=== PATIENT | female | born 1960 | race American Indian/Alaskan Native ===

== ENCOUNTER 2016-12-05 02:48 | Emergency (ER) | payer SELFPAY ==
[2016-12-05 03:02] VITALS: BP 155/115
--- NOTE | 2016-12-05 06:54 | Emergency Department Report ---
ED Rash HPI - HPI Chief Complaint: Skin Rash Stated Complaint: PAINFUL RASH ON CHEST Time Seen by Provider: 12/05/16 06:06 Location: Other (beneath left breast) Rash Symptoms: Yes Itching, No Facial Swelling, No Tongue/Oral Swelling, No Breathing Difficulties, No Choking Sensation, No Wheezing/Dyspnea, No Peeling, No Blistering, No Fever, No Lightheaded, No Malaise, No Myalgias Severity: mild Other History: 56-year-old female past medical history Lupus presents with complaint of itchy slightly bumpy red rash with moist skin beneath left breast. States she has had this for several days and that it is itchy and bothersome. Using any creams for this denies any fevers or chills denies any history of shingles ED Review of Systems ROS: Stated complaint: PAINFUL RASH ON CHEST Other details as noted in HPI Constitutional: denies: chills, fever Eyes: denies: eye pain, eye discharge, vision change ENT: denies: ear pain, throat pain Respiratory: denies: cough, shortness of breath, wheezing Cardiovascular: denies: chest pain, palpitations Endocrine: no symptoms reported Gastrointestinal: denies: abdominal pain, nausea, diarrhea Genitourinary: denies: urgency, dysuria, discharge Musculoskeletal: denies: back pain, joint swelling, arthralgia Skin: as per HPI. denies: rash, lesions Neurological: denies: headache, weakness, paresthesias Psychiatric: denies: anxiety, depression Hematological/Lymphatic: denies: easy bleeding, easy bruising ED Past Medical Hx - Past Medical History Previous Medical History?: Yes Hx Hypertension: Yes Additional medical history: Lupus. Colitis - Surgical History Past Surgical History?: No - Social History Smoking Status: Never Smoker Substance Use Type: None - Medications Home Medications: Home Medications Medication Instructions Recorded Confirmed Last Taken Type Hydrocortisone 1% [Hydrocortisone 1 applicatio TP TID PRN #1 tube 12/05/16 Unknown Rx 1% CREAM] Hydroxyzine HCl 25 mg PO BID PRN #20 tablet 12/05/16 Unknown Rx Nystatin [Nystop Powder] 1 applicatio TP BID #1 bottle 12/05/16 Unknown Rx Terbinafine HCl [Lamisil] 1 spray TP BID #1 spray 12/05/16 Unknown Rx Rash Exam - Exam General: Vital signs noted. No distress. Alert and acting appropriately. HEENT: No Periorbital Edema, No Conjuctival Injection, No Chemosis, No Perioral Edema, No Tongue Edema, No Uvular Edema, No Compromised Airway, No Drooling Lungs: Yes Good Air Exchange (Normal Breath Sounds), No Wheezes, No Ronchi, No Stridor, No Cough, No Labored Respirations, No Retractions, No Use of Accessory Muscles, No Other Abnormal Lung Sounds Heart: Yes Regular, No Murmur Skin: Yes Urticarial Rash, Yes Maculopapular Rash (red slightly raised plaques with serous leakage below left breast, consistent with intertrigo), Yes Weeping , Yes Erythema, No Morbilliform rash, No Bulla(e), No Excoriations, No Tenderness, No Edema, No Encrustations, No Other Other: Positive: Abdomen Normal, Neurologic Normal, Musculoskeletal Normal ED Course Vital Signs 12/05/16 02:50 Temperature 98.3 F Pulse Rate 88 Respiratory 20 Rate Blood Pressure 155/115 [Right] O2 Sat by Pulse 100 Oximetry ED Medical Decision Making - Medical Decision Making A/P: Candidal intertrigo beneath her left breast skin fold 1-topical antifungals antifungals 2-follow-up with primary care and dermatology Critical care attestation.: If time is entered above; I have spent that time in minutes in the direct care of this critically ill patient, excluding procedure time. ED Disposition Clinical Impression: Candidal intertrigo Disposition: DC-01 TO HOME OR SELFCARE Is pt being admited?: No Does the pt Need Aspirin: No Condition: Stable Instructions: Tinea Corporis (ED) Prescriptions: Hydrocortisone 1% [Hydrocortisone 1% CREAM] 1 applicatio TP TID PRN #1 tube PRN Reason: Itching Hydroxyzine HCl 25 mg PO BID PRN #20 tablet PRN Reason: Itching Nystatin [Nystop Powder] 1 applicatio TP BID #1 bottle Terbinafine HCl [Lamisil] 1 spray TP BID #1 spray Referrals: CURT HINKLE MD [Staff Physician] - 3-5 Days [facility] [Provider Group] - 3-5 Days Forms: Work/School Release Form(ED) Time of Disposition: 06:54
== END 2016-12-05 07:05 | disposition home or self-care (01) ==
LOC: ED 02:48
DX: B37.2 Candidiasis of skin and nail (principal); I10 Essential (primary) hypertension
CPT/HCPCS: 99282